=== PATIENT | female | born 1955 | race Two or more races ===

== ENCOUNTER 2018-03-28 10:07 | Inpatient (IN) | payer OTHER ==
[2018-03-25 09:54] VITALS: BMI 35.6
[~2018-03-28 10:07] MED LIST: LACTATED RINGERS SOLUTION 1,000 ML IV SCH; ONDANSETRON 4 MG/2 ML VIAL IVPUSH PRN
[2018-03-28] MEDS ORDERED: THROMBIN (BOVINE) 5,000 UNIT VIAL TP ONE ×2 (10:55→13:22)
[2018-03-28] MEDS ORDERED: DEXAMETHASONE SOD PHOSPHATE 4 MG/1 ML VIAL ONE ×2 (11:18→12:18)
[2018-03-28] MEDS ORDERED: LIDOCAINE HCL/PF 2% SDV 5ML VIAL ONE ×4 (11:18→14:27)
[2018-03-28] MEDS ORDERED: PROPOFOL 20 ML ONE ×8 (11:19→14:25)
[2018-03-28] MEDS ORDERED: ROCURONIUM BROMIDE 50 MG/5 ML VIAL ONE (11:19)
[2018-03-28] MEDS ORDERED: MIDAZOLAM HCL 2 MG/2 ML SINGLE DOSE VIAL ONE ×2 (11:21→12:16)
[2018-03-28] MEDS ORDERED: ePHEDrine SULFATE 50 MG/1 ML AMPULE ONE (12:25)
[2018-03-28] MEDS ORDERED: ceFAZolin SODIUM 1 GM VIAL IVPB ONE (12:30)
[2018-03-28] MEDS ORDERED: SODIUM CHLORIDE 0.9% P/F 10 ML VIAL IJ ONE (12:31)
[2018-03-28] MEDS ORDERED: GLYCOPYRROLATE 0.2 MG/1 ML VIAL ONE (13:02)
[2018-03-28] MEDS ORDERED: NEOSTIGMINE METHYLSULFATE 0.5 MG/ML - 10 ML MDV ONE (13:02)
[2018-03-28] MEDS ORDERED: ESMOLOL HCL 100,000 MCG/10 ML VIAL ONE (13:11)
[2018-03-28] MEDS ORDERED: METOPROLOL TARTRATE 5 MG/5 ML VIAL ONE (13:11)
[2018-03-28] MEDS ORDERED: oxyCODONE HCL 5 MG TABLET PO PRN ×2 (15:15)
[2018-03-28] MEDS ORDERED: morphine SULFATE 4 MG/ML VIAL IVPUSH PRN (15:15)
[2018-03-28] MEDS ORDERED: ONDANSETRON 4 MG/2 ML VIAL IVPUSH PRN (15:15)
[2018-03-28] MEDS ORDERED: ACETAMINOPHEN 1000 MG/100 ML VIAL (NON FORMULARY) IVPB ONE (15:18)
[2018-03-28] MEDS ORDERED: ACETAMINOPHEN INJECTION 100 ML IVPB ONE (15:25)
--- NOTE | 2018-03-28 16:06 | OP ---
Operative Note - Note: Operative Date: 03/28/18 Pre-Operative Diagnosis: Cervical Stenosis with radiculopathy C3/4, C4/5 Operation: C3/4, C4/5 ACDF with allograft implant, anterior palting, neuromonitoring Post-Operative Diagnosis: Same as Pre-op Surgeon: Tae Alves Sales Planning Analyst: Boogie Corral Anesthesiologist/LEAF CONDITIONER HELPER: Boris Carrillo Anesthesia: General Specimens Removed: C3/4, C4/5 discs Estimated Blood Loss (mls): 15 Drains, Volume Out (mls): 300 (Echevarria) Fluid Volume Replaced (mls): 900 Operative Report Dictated: Yes
--- NOTE | 2018-03-28 16:06 | SURG ---
Surgery Dynamicist Note Dynamicist: Boogie Corral PA-C Date of Service: 03/28/18 Diagnosis: Cervical stenosis with radiculopathy C3-C5 Procedure: C3/4, C4/5 ACDF with allograft implant, anterior palting, neuromonitoring I was present for the entirety of the operative procedure. For further detail, please refer to operative report. Visit type - Case Type Case Type: Scheduled - New patient This patient is new to me today: Yes Date on this admission: 03/28/18
[2018-03-28] MEDS: LACTATED RINGERS SOLUTION 1,000 ML IV SCH (16:30)
--- NOTE | 2018-03-28 17:33 | CONSULT ---
Consultation: REQUESTING PROVIDER: CONSULT REQUEST: We have been asked to medically evaluate this patient for ICU management. HISTORY OF PRESENT ILLNESS: 62 y/o F with PMH HLD, hx R knee replacement, lumbar surgery - w/plates, L shoulder surgery, who presents to ICU s/p C3/4, C4/5 ACDF with allograft implant , anterior plating for dx cervical stenosis with radiculopathy C3-C5. As per daughter, pt used to work as a maid in a hotel. In 2009, she fell at work when she was cleaning; her glove slipped, and she fell backwards into the tub, injuring the posterior portion of her neck. Pt was rushed to [facility] and underwent XR imaging, which was WNL. Over the subsequent years, she tried physical therapy for her neck (as well as numerous other MSK injuries), and cortisone shots, without relief. During this time, she endorsed numbness and tingling in her upper extremities. Pt was found to have cervical stenosis, and today underwent the above procedure. Est blood loss 15ml. Family states that her current injury is part of "workman's comp." During evaluation, pt somnolent after receiving morphine. As per family, pt without JO, fever, chills, SOB, or changes in urinary or bowel function. PMH: HLD PsxH: R knee replacement, lumbar surgery - w/plates, L shoulder surgery meds: simvastatin 10mg PO HS allergies: NKDA REVIEW OF SYSTEMS: CONSTITUTIONAL: Absent: fever, chills, diaphoresis, generalized weakness, malaise, loss of appetite, weight change HEENT: Absent: rhinorrhea, nasal congestion, throat pain, throat swelling, difficulty swallowing, mouth swelling, ear pain, eye pain, visual changes CARDIOVASCULAR: Absent: chest pain, syncope, palpitations, irregular heart rate, lightheadedness , peripheral edema RESPIRATORY: Absent: cough, shortness of breath, dyspnea with exertion, orthopnea, wheezing, stridor, hemoptysis GASTROINTESTINAL: Absent: abdominal pain, abdominal distension, nausea, vomiting, diarrhea, constipation, melena, hematochezia GENITOURINARY: Absent: dysuria, frequency, urgency, hesitancy, hematuria, flank pain, genital pain MUSCULOSKELETAL: +neck pain Absent: myalgia, arthralgia, joint swelling, back pain SKIN: Absent: rash, itching, pallor HEMATOLOGIC/IMMUNOLOGIC: Absent: easy bleeding, easy bruising, lymphadenopathy, frequent infections ENDOCRINE: Absent: unexplained weight gain, unexplained weight loss, heat intolerance, cold intolerance NEUROLOGIC: Absent: headache, focal weakness or paresthesias, dizziness, unsteady gait, seizure, mental status changes, bladder or bowel incontinence PSYCHIATRIC: Absent: anxiety, depression, suicidal or homicidal ideation, hallucinations. PHYSICAL EXAMINATION Vital Signs 03/28/18 03/28/18 03/28/18 16:45 17:00 17:15 Temperature 97.4 F L Pulse Rate 82 82 86 Respiratory 16 14 14 Rate Blood Pressure 125/76 125/76 122/76 O2 Sat by Pulse 97 Oximetry (%) GENERAL: Resting comfortably in bed, somnolent. in no acute distress HEAD: Normal with no signs of trauma. EYES: Pupils equal, round and reactive to light, extraocular movements intact, sclera anicteric, conjunctiva clear. EARS, NOSE, THROAT: Ears normal, nares patent, oropharynx clear without exudates. Moist mucous membranes. NECK: +cervical collar in place LUNGS: +mild crackles at bases. without rhonchi, or wheezes. No accessory m usage HEART: Regular rate and rhythm, normal S1 and S2 without murmur, rub or gallop. ABDOMEN: Soft, obese, nontender, not distended, normoactive bowel sounds, no guarding, no rebound, no masses. MUSCULOSKELETAL: 4/5 motor strength in upper and lower extremities. LOWER EXTREMITIES: 2+ pt pulses, warm, well-perfused. No calf tenderness. No peripheral edema. NEUROLOGICAL: Cranial nerves II-XII intact. Sensation intact Laboratory Results - last 24 hr 03/28/18 03/28/18 10:22 11:00 Blood Type AB POSITIVE AB POSITIVE Antibody Screen Negative Active Medications Generic Name Dose Route Start Last Admin Trade Name Freq PRN Reason Stop Dose Admin Atorvastatin Calcium 10 mg 03/28/18 22:00 Lipitor - PO HS KEO Dexamethasone Sodium Phosphate 4 mg 03/28/18 18:00 Decadron Injection - IVPUSH Q8H-IV KEO Fentanyl 50 mcg 03/28/18 09:58 03/28/18 16:00 Sublimaze Injection - IVPUSH 50 mcg [id number] PRN Administration PAIN-PACU ORDER X 4 DOSES ONLY Lactated Ringer's 1,000 mls @ 75 mls/hr 03/28/18 10:00 Lactated Ringers Solution IV ASDIR KEO Cefazolin Sodium 1 gm/ 100 mls @ 200 mls/hr 03/28/18 18:00 Dextrose IVPB 03/29/18 02:29 Q8H-IV KEO Lactated Ringer's 1,000 mls @ 125 mls/hr 03/28/18 15:15 03/28/18 16:30 Lactated Ringers Solution IV 0 mls ASDIR KEO Administration Ketorolac Tromethamine 30 mg 03/28/18 15:15 Toradol Injection - IVPUSH 04/02/18 15:14 Q6H PRN PAIN LEVEL 1 - 3 Morphine Sulfate 4 mg 03/28/18 15:15 03/28/18 17:24 Morphine Sulfate IVPUSH 4 mg Q4H PRN Administration PAIN LEVEL 6-10 Ondansetron HCl 4 mg 03/28/18 09:58 Zofran Injection IVPUSH Q6H PRN NAUSEA AND/OR VOMITING Ondansetron HCl 4 mg 03/28/18 15:15 Zofran Injection IVPUSH Q6H PRN NAUSEA AND/OR VOMITING Oxycodone HCl 5 mg 03/28/18 15:15 Roxicodone - PO Q4H PRN PAIN LEVEL 1-5 Oxycodone HCl 10 mg 03/28/18 15:15 Roxicodone - PO Q4H PRN PAIN LEVEL 6-10 ASSESSMENT/PLAN: 62 y/o F with PMH HLD, hx R knee replacement, lumbar surgery - w/plates, L shoulder surgery, who presents to ICU s/p C3/4, C4/5 ACDF with allograft implant , anterior plating for dx cervical stenosis with radiculopathy C3-C5. MUSCULOSKELETAL #dx cervical stenosis s/p C3/4, C4/5 ACDF with allograft implant, anterior plating - PO Day 0 -continue cervical collar until cleared by surgery, follow recs -receiving ancef 1gm q8h - 24hrs post op -dexamethasone 4mg IVP q8h -pain control: oxycodone 5mg, 10mg PO q4h PRN, toradol 30mg IVP q4h PRN -nausea: zofran 4mg IVP q6h PRN -IVF LR 125 cc/hr -cont to use incentive spirometer -NPO until flatus -PT CARDIO #HLD -continue lipitor 10mg PO qHS #F/E/N IV LR 125 cc/hr continue to follow lytes NPO until flatus #PPX DVT : SCD's, NICK's GI: not indicated at this time Dispo: We will continue to follow the patient. Thank you for this consultative opportunity. Visit type - Emergency Visit Emergency Visit: No - New Patient This patient is new to me today: Yes Date on this admission: 03/28/18 - Critical Care Critical Care patient: Yes Total Critical Care Time (in minutes): 38 Critical Care Statement: The care of this patient involved high complexity decision making to prevent further life threatening deterioration of the patient 's condition and/or to evaluate & treat vital organ system(s) failure or risk of failure.
[2018-03-28] MEDS: KETOROLAC TROMETHAMINE 30 MG/1 ML VIAL IVPUSH PRN ×2 (17:39→23:18)
[2018-03-28] MEDS ORDERED: ceFAZolin SODIUM 1 GM VIAL ONE (19:08)
[2018-03-28] MEDS ORDERED: DEXTROSE 5%-WATER 100 ML IVPB ONE (19:08)
[2018-03-28] MEDS: CEFAZOLIN 1 GM in DEXTROSE 5%-WATER 100 ML IVPB SCH (19:10)
[2018-03-28] MEDS: DEXAMETHASONE SOD PHOSPHATE 4 MG/1 ML VIAL IVPUSH SCH (19:13)
[2018-03-28] MEDS: MUPIROCIN 2% TOPICAL OINTMENT FOR DECOLONIZATION NS SCH (21:44)
[2018-03-28] MEDS: ATORVASTATIN CA 10 MG TABLET (FP) PO SCH ×2 (21:44→21:59)
[2018-03-28] MEDS ORDERED: CHLORHEXIDINE GLUCONATE 4% CLEANSER FOR DECOLONIZATION TP SCH (22:00)
[2018-03-29] MEDS ORDERED: ceFAZolin SODIUM 1 GM VIAL ONE (00:12)
[2018-03-29] MEDS ORDERED: DEXTROSE 5%-WATER 100 ML IVPB ONE (00:13)
[2018-03-29] MEDS: CEFAZOLIN 1 GM in DEXTROSE 5%-WATER 100 ML IVPB SCH (01:40)
[2018-03-29] MEDS: DEXAMETHASONE SOD PHOSPHATE 4 MG/1 ML VIAL IVPUSH SCH ×2 (01:40→10:26)
[2018-03-29] MEDS: KETOROLAC TROMETHAMINE 30 MG/1 ML VIAL IVPUSH PRN (05:23)
[2018-03-29 06:09] LABS: ANION GAP 6 MMOL/L (8-16); BLOOD UREA NITROGEN 11 mg/dL (7-18); CALCIUM 9.7 mg/dL (8.5-10.1); CHLORIDE 108 mmol/L (98-107); CO2 27 mmol/L (21-32); CREATININE 0.5 mg/dL (0.55-1.02); GLUCOSE,RANDOM 149 mg/dL (74-106); PHOSPHOROUS 2.6 mg/dL (2.5-4.9); POTASSIUM 4.2 mmol/L (3.5-5.1); SODIUM 141 mmol/L (136-145)
[2018-03-29 06:21] LABS: BASO % 0.2 % (0-2.0); HEMATOCRIT 41.5 % (32.4-45.2); HEMOGLOBIN 13.3 GM/dL (10.7-15.3); LYMPH % 9.6 % (8-40); MCH 27.5 pg (25.7-33.7); MEAN PLT VOLUME 8.8 fl (7.5-11.1); MONO % 1.5 % (3.8-10.2); NEUT % 88.7 % (42.8-82.8); PLATELET COUNT 222 K/MM3 (134-434); RBC 4.82 M/mm3 (3.60-5.2); RDW 13.9 % (11.6-15.6); WHITE BLOOD COUNT 10.2 K/mm3 (4.0-10.0)
--- NOTE | 2018-03-29 08:08 | PN ---
Physical Exam: SUBJECTIVE: Patient seen and examined. Pt. was in pain, was given Toradol to good effect. Pt. c/o of painful swallowing and could not take PO doses last night of home medications. Pt. this morning c/o pain in the apex of the skull that she endorses has been there well before the surgery. Pt. denies fever, chill, nausea, vomiting, chest pain, shortness of breath, numbness or tingling in the extremities. Per nurse conversation with daughter, Pt. has had a bad reaction to oxycodone in the past, which makes her lightheaded. Pt. denies passing gas or stool. In the afternoon Pt.'s Echevarria was removed. OBJECTIVE: Vital Signs Period Temp Pulse Resp BP Sys/Miranda Pulse Ox Last 24 Hr 97.4 F-98.8 F 62-89 14-20 114-143/63-81 96-98 GENERAL: The patient is a well-appearing irish-only speaking female, awake, alert, and fully oriented, in mild distress. HEAD: Normal with no signs of trauma, mild tenderness to palpation in apex. EYES: PERRL, extraocular movements intact, sclera anicteric, conjunctiva clear. No ptosis. ENT: Ears normal, nares patent, moist mucous membranes difficult to assess d/t C -collar. NECK: C-collar in place LUNGS: Crackles in left lower lobe and right middle and lower lobes, wet non- productive cough, no accessory muscle use. HEART: Regular rate and rhythm, S1, S2 without murmur ABDOMEN: Soft, nontender, nondistended, sluggish bowel sounds, no guarding, no rebound Echevarria in place draining clear yellow urine EXTREMITIES: 2+ pulses, warm, well-perfused, no edema. NEUROLOGICAL: Cranial nerves II through XII grossly intact. Did not assess head turning against resistance. Normal speech, gait not observed. PSYCH: Normal mood, normal affect. SKIN: Warm, dry, normal turgor, no rashes or lesions noted Laboratory Results - last 24 hr 03/28/18 03/28/18 03/29/18 10:22 11:00 05:30 WBC 10.2 H RBC 4.82 Hgb 13.3 Hct 41.5 MCV 86.0 MCH 27.5 MCHC 32.0 RDW 13.9 Plt Count 222 MPV 8.8 Absolute Neuts (auto) 9.1 H Neutrophils % 88.7 H Lymphocytes % 9.6 Monocytes % 1.5 L Eosinophils % 0.0 Basophils % 0.2 Nucleated RBC % 0 Sodium Potassium Chloride Carbon Dioxide Anion Gap BUN Creatinine Creat Clearance w eGFR Random Glucose Calcium Phosphorus Magnesium Blood Type AB POSITIVE AB POSITIVE Antibody Screen Negative 03/29/18 05:30 WBC RBC Hgb Hct MCV MCH MCHC RDW Plt Count MPV Absolute Neuts (auto) Neutrophils % Lymphocytes % Monocytes % Eosinophils % Basophils % Nucleated RBC % Sodium 141 Potassium 4.2 Chloride 108 H Carbon Dioxide 27 Anion Gap 6 L BUN 11 Creatinine 0.5 L Creat Clearance w eGFR > 60 Random Glucose 149 H Calcium 9.7 Phosphorus 2.6 Magnesium 2.0 Blood Type Antibody Screen Active Medications Current Medications Atorvastatin Calcium (Lipitor -) 10 mg PO HS [facility] Last Admin: 03/28/18 21:59 Dose: Not Given Chlorhexidine Gluconate (Hibiclens For Decolonization -) 1 applic TP HS [facility] Last Admin: 03/28/18 21:44 Dose: 1 applic Dexamethasone Sodium Phosphate (Decadron Injection -) 4 mg IVPUSH Q8H-IV [facility] Last Admin: 03/29/18 01:40 Dose: 4 mg Fentanyl (Sublimaze Injection -) 50 mcg IVPUSH [id number] PRN PRN Reason: PAIN-PACU ORDER X 4 DOSES ONLY Last Admin: 03/28/18 16:00 Dose: 50 mcg Lactated Ringer's (Lactated Ringers Solution) 1,000 mls @ 125 mls/hr IV ASDIR [facility] Last Admin: 03/28/18 16:30 Dose: 0 mls Ketorolac Tromethamine (Toradol Injection -) 30 mg IVPUSH Q6H PRN PRN Reason: PAIN LEVEL 1 - 3 Stop: 04/02/18 15:14 Last Admin: 03/29/18 05:23 Dose: 30 mg Morphine Sulfate (Morphine Sulfate) 4 mg IVPUSH Q4H PRN PRN Reason: PAIN LEVEL 6-10 Last Admin: 03/28/18 17:24 Dose: 4 mg Mupirocin (Bactroban Ointment (For Decolonization) -) 1 applic NS BID KEO Stop: 04/02/18 21:59 Last Admin: 03/28/18 21:44 Dose: 1 applic Ondansetron HCl (Zofran Injection) 4 mg IVPUSH Q6H PRN PRN Reason: NAUSEA AND/OR VOMITING Oxycodone HCl (Roxicodone -) 5 mg PO Q4H PRN PRN Reason: PAIN LEVEL 1-5 Oxycodone HCl (Roxicodone -) 10 mg PO Q4H PRN PRN Reason: PAIN LEVEL 6-10 ASSESSMENT/PLAN: 62 y/o F with PMH HLD, hx R knee replacement, lumbar surgery - w/plates, L shoulder surgery, who presents to ICU s/p C3/4, C4/5 ACDF with allograft implant , anterior plating for dx cervical stenosis with radiculopathy C3-C5. #Neurology -Cervical stenosis s/p C3/4, C4/5 ACDF with allograft implant, anterior plating - PO Day 01 f/u C-spine X-ray( 03/29/18) continue cervical collar until cleared by surgery, follow recs dexamethasone 4mg IVP q8h pain control: oxycodone 5mg, 10mg PO q4h PRN, toradol 30mg IVP q4h PRN nausea: zofran 4mg IVP q6h PRN c/w incentive spirometer NPO until flatus PT completed 2/2 doses of post op Abx. (Anceg 2 gm) #Cardiology -HLD c/w lipitor 10mg PO qHS #F/E/N -IV LR 125 cc/hr until able to tolerate PO -monitor electrolytes -Diet advanced to clears. #PPX DVT: SCD's, NICK's GI: not indicated at this time Dispo: Floor or home pending X-ray findings. Visit type - Emergency Visit Emergency Visit: No - New Patient This patient is new to me today: Yes Date on this admission: 03/29/18 - Critical Care Critical Care patient: No - Discharge Referral Referred to [facility] Med P.C.: No
--- NOTE | 2018-03-29 08:14 | PN ---
Physical Exam: SUBJECTIVE: Patient seen and examined OBJECTIVE: Vital Signs Period Temp Pulse Resp BP Sys/Miranda Pulse Ox Last 24 Hr 97.4 F-98.8 F 62-89 14-20 114-143/63-81 96-98 GENERAL: The patient is awake, alert, and fully oriented, in no acute distress. HEAD: Normal with no signs of trauma. EYES: PERRL, extraocular movements intact, sclera anicteric, conjunctiva clear. No ptosis. ENT: Ears normal, nares patent, oropharynx clear without exudates, moist mucous membranes. NECK: Trachea midline, full range of motion, supple. LUNGS: Breath sounds equal, clear to auscultation bilaterally, no wheezes, no crackles, no accessory muscle use. HEART: Regular rate and rhythm, S1, S2 without murmur, rub or gallop. ABDOMEN: Soft, nontender, nondistended, normoactive bowel sounds, no guarding, no rebound, no hepatosplenomegaly, no masses. EXTREMITIES: 2+ pulses, warm, well-perfused, no edema. NEUROLOGICAL: Cranial nerves II through XII grossly intact. Normal speech, gait not observed. PSYCH: Normal mood, normal affect. SKIN: Warm, dry, normal turgor, no rashes or lesions noted Laboratory Results - last 24 hr 03/28/18 03/28/18 03/29/18 10:22 11:00 05:30 WBC 10.2 H RBC 4.82 Hgb 13.3 Hct 41.5 MCV 86.0 MCH 27.5 MCHC 32.0 RDW 13.9 Plt Count 222 MPV 8.8 Absolute Neuts (auto) 9.1 H Neutrophils % 88.7 H Lymphocytes % 9.6 Monocytes % 1.5 L Eosinophils % 0.0 Basophils % 0.2 Nucleated RBC % 0 Sodium Potassium Chloride Carbon Dioxide Anion Gap BUN Creatinine Creat Clearance w eGFR Random Glucose Calcium Phosphorus Magnesium Blood Type AB POSITIVE AB POSITIVE Antibody Screen Negative 03/29/18 05:30 WBC RBC Hgb Hct MCV MCH MCHC RDW Plt Count MPV Absolute Neuts (auto) Neutrophils % Lymphocytes % Monocytes % Eosinophils % Basophils % Nucleated RBC % Sodium 141 Potassium 4.2 Chloride 108 H Carbon Dioxide 27 Anion Gap 6 L BUN 11 Creatinine 0.5 L Creat Clearance w eGFR > 60 Random Glucose 149 H Calcium 9.7 Phosphorus 2.6 Magnesium 2.0 Blood Type Antibody Screen Active Medications Generic Name Dose Route Start Last Admin Trade Name Freq PRN Reason Stop Dose Admin Atorvastatin Calcium 10 mg 03/28/18 22:00 03/28/18 21:59 Lipitor - PO Not Given HS [facility] Chlorhexidine Gluconate 1 applic 03/28/18 22:00 03/28/18 21:44 Hibiclens For Decolonization - TP 1 applic HS KEO Administration Dexamethasone Sodium Phosphate 4 mg 03/28/18 18:00 03/29/18 01:40 Decadron Injection - IVPUSH 4 mg Q8H-IV KEO Administration Fentanyl 50 mcg 03/28/18 09:58 03/28/18 16:00 Sublimaze Injection - IVPUSH 50 mcg [id number] PRN Administration PAIN-PACU ORDER X 4 DOSES ONLY Lactated Ringer's 1,000 mls @ 125 mls/hr 03/28/18 15:15 03/28/18 16:30 Lactated Ringers Solution IV 0 mls ASDIR KEO Administration Ketorolac Tromethamine 30 mg 03/28/18 15:15 03/29/18 05:23 Toradol Injection - IVPUSH 04/02/18 15:14 30 mg Q6H PRN Administration PAIN LEVEL 1 - 3 Morphine Sulfate 4 mg 03/28/18 15:15 03/28/18 17:24 Morphine Sulfate IVPUSH 4 mg Q4H PRN Administration PAIN LEVEL 6-10 Mupirocin 1 applic 03/28/18 22:00 03/28/18 21:44 Bactroban Ointment (For Decolonization) - NS 04/02/18 21:59 1 applic BID KEO Administration Ondansetron HCl 4 mg 03/28/18 15:15 Zofran Injection IVPUSH Q6H PRN NAUSEA AND/OR VOMITING Oxycodone HCl 5 mg 03/28/18 15:15 Roxicodone - PO Q4H PRN PAIN LEVEL 1-5 Oxycodone HCl 10 mg 03/28/18 15:15 Roxicodone - PO Q4H PRN PAIN LEVEL 6-10 ASSESSMENT/PLAN: bowel regimen coles steroid management LR clears
[2018-03-29] MEDS ORDERED: BISACODYL 10 MG SUPP.RECT RC PRN (08:26)
[2018-03-29] MEDS ORDERED: traMADol HCL 50 MG TABLET PO PRN (08:30)
--- NOTE | 2018-03-29 08:32 | OP ---
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 POSTOPERATIVE DIAGNOSIS: C3-C4 and C4-C5 disk prolapse with spinal stenosis and cervical spondylogenic myelopathy. OPERATION PERFORMED: 1. C3-C4 and C4-C5 anterior cervical diskectomy and fusion. 2. Partial corpectomy C3, C4, and C5. 3. Cages x2. 4. Anterior arthrodesis with BioReady putty and bone graft. 5. Anterior plating, C3, C4, C5. ANESTHESIA: General. ANTIBIOTICS GIVEN: Kefzol 2 g, 1 g vancomycin preoperative and 10 mg of Decadron utilized. DESCRIPTION OF PROCEDURE: The patient was correctly identified and brought to the operating room. The anterior cervical spine was prepped and window draped in the routine manner with Betadine scrub solution, wiped off with alcohol, DuraPrep applied. A bolster was placed transversely behind the scapulae. The shoulders were taped distally. The set-up revealed the patient in a neutral position. Time-out was called. Imaging was available for intraoperative evaluation. Once this had been performed, the incision was made just proximal to the cricothyroid interval in the lines of Yassine. A longitudinal dissection of the platysma was performed. Deep to the platysma, large anterior jugular veins were tied off. With finger dissection, the plane between the viscera and vessels was entered. This was by entering into the with finger dissection right down to the anterior vertebral bodies. Two retractors were placed, one medially and one lateral. The longus coli was lifted off the bone bed with unipolar Bovie. Once this had been performed, the teeth of the mediolateral retractors were inserted into the soft tissue bed. The entire exposure was facilitated with the two Vista pins placed, one in the body of C5 and the other in the body of C3. Lateral fluoroscopic x-rays revealed once again the correct positioning for surgical intervention and excellent positioning of the Vista pins. Gentle distraction was then performed. Each disk was dealt with in the identical way, namely, an annulectomy detaching the annulus from the vertebral body with unipolar Bovie. Using curettes, the entire disk was resected. Using a 40-mm smooth Aereoas Arnaud dacia tip bur, the bone was resected, particularly in the superior aspect of each disk space to create a space for the bur to cut out the uncovertebral joints and extend the dissection with partial corpectomies performed at the C3-C4 disk and at the same time the C4-C5 disks with the bur, thus creating a wide rectangle to receive size 7 cages as measured with the appropriate jig devices. The thecal was freed completely. Some patchy areas of posterior longitudinal ligament were left behind as a check against over-distraction. The bone bed was thoroughly lavaged and the disks were completely resected. They were sent to the lab for histopathologic confirmation. The endplates were healthy bleeding bone. Using appropriate Fortilink 7-mm spacers combined with additional BioReady putty, the interbody spacers were placed. The distraction devices were removed. Ligamentotaxis enabled solid fixation of these cages. Any bony defect spaces were filled up with allograft bone. That was namely the BioReady putty. A size 29 plate was applied to the anterior aspect of the vertebral bodies. Screws fixed into the plates at each level, C3, C4, and C5 were revealed to have excellent fixation. Each screw was solidly seated. Locking devices applied appropriately. Lateral and AP fluoroscopic x-rays showed excellent positioning. No neural monitoring deficits noted. Sensory as well as evoked motor potentials remained normal throughout. There was no apparent abnormality of the vocal cords either on ET and neural stimulation. The wounds were thoroughly lavaged. Complete hemostasis had been achieved. Closure 3-0 Vicryl, subcutaneous 3-0 Vicryl, skin 3-0 Monocryl with Steri-Strips. No drains utilized. Overall, the operation went exceedingly well. No complications. MD RITIKA Vang/[id number]
[2018-03-29] MEDS ORDERED: POLYETHYLENE GLYCOL 3350 119 GM BTL PO SCH (10:00)
[2018-03-29] MEDS: LACTATED RINGERS SOLUTION 1,000 ML IV SCH (10:19)
[2018-03-29] MEDS: MUPIROCIN 2% TOPICAL OINTMENT FOR DECOLONIZATION NS SCH (10:31)
--- NOTE | 2018-03-29 11:17 | PN ---
Progress Note (short form) - Note Progress Note: Anesthesia post op Pt seen and examined S:Alert and awake O: Vital Signs Temperature 98.8 F 03/29/18 05:36 Pulse Rate 74 03/29/18 08:00 Respiratory Rate 16 03/29/18 08:00 Blood Pressure 101/68 03/29/18 08:00 O2 Sat by Pulse Oximetry (%) 98 03/29/18 09:00 CBC, BMP 03/29/18 05:30 03/29/18 05:30 A/P: s/p C3-5 ACDF Doing well post op Continue current care Siddharth Rayo MD
--- NOTE | 2018-03-29 12:22 | PN ---
Teaching Attending Note Name of Resident: Tae Duran ATTENDING PHYSICIAN STATEMENT I saw and evaluated the patient. I reviewed the resident's note and discussed the case with the resident. I agree with the resident's findings and plan as documented. SUBJECTIVE: Patient seen and examined. Awake and alert. Pain seems adequately controlled. No CP or SOB. Noted to have episodes of hypoventilation overnight while sleeping. Intake & Output 03/26/18 03/27/18 03/28/18 03/29/18 23:59 23:59 23:59 23:59 Intake Total 1600 Output Total 1215 700 Balance 385 -700 Last Vital Signs Temp Pulse Resp BP Pulse Ox 98.8 F 74 16 101/68 98 03/29/18 05:36 03/29/18 08:00 03/29/18 08:00 03/29/18 08:00 03/29/18 09:00 Active Medications Atorvastatin Calcium (Lipitor -) 10 mg PO HS KEO Last Admin: 03/28/18 21:59 Dose: Not Given Bisacodyl (Dulcolax Suppository -) 10 mg RC DAILY PRN PRN Reason: CONSTIPATION Chlorhexidine Gluconate (Hibiclens For Decolonization -) 1 applic TP HS [facility] Last Admin: 03/28/18 21:44 Dose: 1 applic Dexamethasone Sodium Phosphate (Decadron Injection -) 4 mg IVPUSH Q8H-IV KEO Last Admin: 03/29/18 10:26 Dose: 4 mg Docusate Sodium (Colace -) 300 mg PO HS KEO Fentanyl (Sublimaze Injection -) 50 mcg IVPUSH [id number] PRN PRN Reason: PAIN-PACU ORDER X 4 DOSES ONLY Last Admin: 03/28/18 16:00 Dose: 50 mcg Lactated Ringer's (Lactated Ringers Solution) 1,000 mls @ 125 mls/hr IV ASDIR KEO Last Admin: 03/29/18 10:19 Dose: 125 mls/hr Ketorolac Tromethamine (Toradol Injection -) 30 mg IVPUSH Q6H PRN PRN Reason: PAIN LEVEL 1 - 3 Stop: 04/02/18 15:14 Last Admin: 03/29/18 05:23 Dose: 30 mg Morphine Sulfate (Morphine Sulfate) 4 mg IVPUSH Q4H PRN PRN Reason: PAIN LEVEL 6-10 Last Admin: 03/28/18 17:24 Dose: 4 mg Mupirocin (Bactroban Ointment (For Decolonization) -) 1 applic NS BID [facility] Stop: 04/02/18 21:59 Last Admin: 03/29/18 10:31 Dose: 1 applic Ondansetron HCl (Zofran Injection) 4 mg IVPUSH Q6H PRN PRN Reason: NAUSEA AND/OR VOMITING Oxycodone HCl (Roxicodone -) 5 mg PO Q4H PRN PRN Reason: PAIN LEVEL 1-5 Oxycodone HCl (Roxicodone -) 10 mg PO Q4H PRN PRN Reason: PAIN LEVEL 6-10 Polyethylene Glycol (Miralax (For Daily Use) -) 17 gm PO BID [facility] Last Admin: 03/29/18 10:26 Dose: 17 grams Tramadol HCl (Ultram -) 50 mg PO Q6H PRN PRN Reason: PAIN LEVEL 1-5 GENERAL: Awake and alert, NAD HEAD: Normal with no signs of trauma EYES: PERRL, extraocular movements intact, sclera anicteric, conjunctiva clear. No ptosis. ENT: Ears normal, nares patent, moist mucous membranes difficult to assess d/t C -collar. NECK: C-collar in place LUNGS: Scattered rhonchi HEART: Regular rate and rhythm, S1, S2 without murmur ABDOMEN: Soft, nontender, nondistended, (+) BS EXTREMITIES: 2+ pulses, warm, well-perfused, no edema. NEUROLOGICAL: Non-focal. PSYCH: Normal mood, normal affect. SKIN: Warm, dry, normal turgor, no rashes or lesions noted Laboratory Results - last 24 hr 03/28/18 03/28/18 03/29/18 10:22 11:00 05:30 WBC 10.2 H RBC 4.82 Hgb 13.3 Hct 41.5 MCV 86.0 MCH 27.5 MCHC 32.0 RDW 13.9 Plt Count 222 MPV 8.8 Absolute Neuts (auto) 9.1 H Neutrophils % 88.7 H Lymphocytes % 9.6 Monocytes % 1.5 L Eosinophils % 0.0 Basophils % 0.2 Nucleated RBC % 0 Sodium Potassium Chloride Carbon Dioxide Anion Gap BUN Creatinine Creat Clearance w eGFR Random Glucose Calcium Phosphorus Magnesium Blood Type AB POSITIVE AB POSITIVE Antibody Screen Negative 03/29/18 05:30 WBC RBC Hgb Hct MCV MCH MCHC RDW Plt Count MPV Absolute Neuts (auto) Neutrophils % Lymphocytes % Monocytes % Eosinophils % Basophils % Nucleated RBC % Sodium 141 Potassium 4.2 Chloride 108 H Carbon Dioxide 27 Anion Gap 6 L BUN 11 Creatinine 0.5 L Creat Clearance w eGFR > 60 Random Glucose 149 H Calcium 9.7 Phosphorus 2.6 Magnesium 2.0 Blood Type Antibody Screen ASSESSMENT/PLAN: POD #1: S/P C3/4, C4/5 ACDF with allograft implant, Anterior plating due to Cervical Stenosis HPL Suspected OHS +/- OSAS PLAN: Pain control O2 as needed VTE prophylaxis Incentive Spirometry PO as tolerated Bowel regimen OOB to chair PT / OT Dr Hernandez
--- NOTE | 2018-03-29 13:45 | DS ---
"Physical Exam: SUBJECTIVE: Patient seen and examined OBJECTIVE: Vital Signs Period Temp Pulse Resp BP Sys/Miranda Pulse Ox Last 24 Hr 97.4 F-98.8 F 74-89 14-20 101-143/63-81 96-98 PHYSICAL EXAM GENERAL: The patient is awake, alert, and fully oriented, in no acute distress. HEAD: Normal with no signs of trauma. EYES: PERRL, extraocular movements intact, sclera anicteric, conjunctiva clear. ENT: Ears normal, nares patent, oropharynx clear without exudates, moist mucous membranes. NECK: Trachea midline, full range of motion, supple. LUNGS: Breath sounds equal, clear to auscultation bilaterally, no wheezes, no crackles, no accessory muscle use. HEART: Regular rate and rhythm, S1, S2 without murmur, rub or gallop. ABDOMEN: Soft, nontender, nondistended, normoactive bowel sounds, no guarding, no rebound, no hepatosplenomegaly, no masses. EXTREMITIES: 2+ pulses, warm, well-perfused, no edema. NEUROLOGICAL: Cranial nerves II through XII grossly intact. Normal speech, gait not observed. PSYCH: Normal mood, normal affect. SKIN: Warm, dry, normal turgor, no rashes or lesions noted. LABS Laboratory Results - last 24 hr 03/29/18 03/29/18 05:30 05:30 WBC 10.2 H RBC 4.82 Hgb 13.3 Hct 41.5 MCV 86.0 MCH 27.5 MCHC 32.0 RDW 13.9 Plt Count 222 MPV 8.8 Absolute Neuts (auto) 9.1 H Neutrophils % 88.7 H Lymphocytes % 9.6 Monocytes % 1.5 L Eosinophils % 0.0 Basophils % 0.2 Nucleated RBC % 0 Sodium 141 Potassium 4.2 Chloride 108 H Carbon Dioxide 27 Anion Gap 6 L BUN 11 Creatinine 0.5 L Creat Clearance w eGFR > 60 Random Glucose 149 H Calcium 9.7 Phosphorus 2.6 Magnesium 2.0 HOSPITAL COURSE: Date of Admission:03/28/18 Date of Discharge: 03/29/18 Operative Date: 03/28/18 Pre-Operative Diagnosis: Cervical Stenosis with radiculopathy C3/4, C4/5 Operation: C3/4, C4/5 ACDF with allograft implant, anterior palting, neuromonitoring Post-Operative Diagnosis: Same as Pre-op Uncomplicated post-operative course. Discharged on POD#1 on tramadol PRN. Minutes to complete discharge: 35 Discharge Summary Reason For Visit: RADICULOPATHY, LUMBAR REGION Condition: Stable - Instructions Diet, Activity, Other Instructions: Post Operative Instructions Physical Activity Resume your normal everyday activity as tolerated. No heavy lifting or exercise until seen by your surgeon. You may walk unlimited amounts and climb stairs. You may resume driving the car when you feel safe and comfortable behind the wheel and you are no longer wearing your brace. Do not operate a vehicle while taking narcotic medication. Brace If you had neck surgery, wear surgical collar 23 hr/day. Remove to shower only. Wound Care Keep your incision clean, dry and covered at all times. Apply an occlusive dressing (Saran wrap or Tegaderm) when showering to avoid getting your incision wet. Do not submerge incision or apply ointments or creams. The vick will be removed in the office in 10-14 days post-op. Diet There are no dietary restrictions. Eat healthy, high-fiber foods. Drink 6-8 glasses of liquid each day. This will assist in keeping your bowels regular. Pain Management / [place] [employer] This report was requested by: Boogie Corral | Reference #: [id number] You may take Tylenol or acetaminophen. Any pain prescription medication ordered should be taken as prescribed for moderate to severe pain. Call Dr Alves for any of the following: Severe pain not relieved by medication Fever of 101 or higher Excessive bleeding or drainage on dressing Inability to urinate Any chest pain or shortness of breath, seek Emergency Care. Call the office to confirm a post-operative appointment 10 days post-op Tae Alves MD [facility] [place] Office Disposition: HOME - Home Medications Comprehensive Discharge Medication List: Ambulatory Orders Ibuprofen/Famotidine [Duexis 800-26.6 mg Tablet] 1 each PO PRN 03/25/18 Simvastatin 10 mg PO HS 03/25/18 Diazepam [Valium] 2 mg PO TID PRN #24 tablet MDD 3 03/28/18 Tramadol HCl 50 mg PO Q6H PRN #30 tablet MDD 4 03/28/18 This patient is new to me today: Yes Date on this admission: 04/04/18 Emergency Visit: No Critical Care patient: No - Discharge Referral Referred to [facility] No"
--- NOTE | 2018-03-29 13:52 | PN ---
Progress Note (short form) - Note Progress Note: POD#1 Pt states that she is having mild neck tenderess anterior/posterior. No difficult swallowing, although painful swallowing. No CP/SOB. Arm pain improved , no numbness or tingling. Vital Signs Period Temp Pulse Resp BP Sys/Miranda Pulse Ox Last 24 Hr 97.4 F-98.8 F 74-89 14-20 101-143/63-81 96-98 GEN:A&0x3, NAD Neck: Dressing c/d/i. Neck supple without any hematoma/ecchymosis. Soft collar in place. CV:RRR Lungs: CTA b/ anteriorly ABD: soft, non-distended, non-tender LE: no calf tenderness or swelling b/l. SCD in place CBC, BMP // 05:30 03/29/18 05:30 A/P: 62 yo female s/p C3/4, C4/5 ACDF with allograft implant, anterior plating , neuromonitoring Advance diet as tolerated today OOB/ambulate Pain management, added tramadol. Discontinue IVF after tolerating oral diet Plan for possible discharge to home today. D/w Dr. Alves
[2018-03-29 15:12] VITALS: BP 110/55; PULSE 76; TEMP 98.2
[2018-03-29] MEDS ORDERED: DOCUSATE SODIUM 100 MG CAPSULE (FP) PO SCH (22:00)
--- NOTE | 2018-03-30 01:13 | PN ---
Progress Note (short form) - Note Progress Note: 62F s/p C3-C4, C4-C5 ACDF POD #1. Pain well controlled. No acute events overnight. Pt. denies overnight history of headaches, chest pain, shortness of breath, nausea, vomiting, chills, & sweats. (+) Voiding; (+) Flatus; (-) BM. Tolerating clear liquid diet. (+) Mild dysphagia. (-) Dysphonia. All labs and vitals reviewed. PE: AAO x 3, NAD. C-Spine: Incision, dressing C/D/I. B/L UE & LE SensoriMotor Status: at baseline. 62F s/p C3-C4, C4-C5 ACDF POD #1. -Pain control: per anaesthesia team. -DVT PPx: - Mechanical only: NICK's, SCD's. -Incentive spirometry q15min. -PT/OT/Rehab, OOB. -WBAT B/L LE. -q4h B/L UE & LE NV checks. -Diet as tolerated. -Care per ICU & medical hospitalist team. -Discharge planning[facility]; call for appointment; . -Will follow. Montrell Alves MD (Orthopaedic Surgery).
--- NOTE | 2018-03-30 12:24 | PATH ---
Surgical Pathology Report Patient Name: YENNI BARROS [facility]. Rec. #: [id number] /Age/Gender: 1955 (Age: 62) / F Account: [id number] Location: [facility] MEDIA ACCOUNT EXECUTIVE Taken: 03/28/2018 Received: 03/29/2018 Reported: 03/30/2018 Physicians: Tae Alves M.D. Specimen(s) Received DISC Clinical History Cervical stenosis with radiculopathy Final Diagnosis DISC, C3-C4, C4-C5, ANTERIOR CERVICAL DISCECTOMY AND FUSION: INTERVERTEBRAL DISC TISSUE. Electronically Signed Vanessa Medeiros M.D. Gross Description Received in formalin labeled "disc," is a 3.0 x 2.6 x 0.3 cm aggregate of hernandez fragments of fibrocartilaginous tissue. A delivery representative portion is submitted in one cassette. /03/29/2018 saudi03/29/2018
== END 2018-03-29 16:00 | disposition home or self-care (01) | DRG 321 ==
LOC: JSAMEDAYSX 10:07 → EDSTATUS 13:00 → JICU 16:37
PROVIDERS: ADMIT Internal Medicine; ATTEND Nurse Practitioner Acute Care
PROC: 0RB30ZZ Excision of Cervical Vertebral Disc, Open Approach (ICD-10-PCS; 2018-03-28)
PROC: 4A11X4G Monitoring of Peripheral Nervous Electrical Activity, Intraoperative, External Approach (ICD-10-PCS; 2018-03-28)
PROC: 0RG20A0 Fusion of 2 or more Cervical Vertebral Joints with Interbody Fusion Device, Anterior Approach, Anterior Column, Open Approach (ICD-10-PCS; principal; 2018-03-28 13:00)
DX: M48.02 Spinal stenosis, cervical region (principal); M50.01 Cervical disc disorder with myelopathy, high cervical region; M47.12 Other spondylosis with myelopathy, cervical region; M50.021 Cervical disc disorder at C4-C5 level with myelopathy; M54.12 Radiculopathy, cervical region; E78.5 Hyperlipidemia, unspecified; Z96.651 Presence of right artificial knee joint
CPT/HCPCS: 36415; 72050-TC-FY; 76000-TC-FY; 80048; 83735; 84100; 85025; 86850; 86900; 86901; 88304-TC; 94760; 97116-GP; 97161-GP; J0131